=== PATIENT | female | born 1985 | race Caucasian/White ===

== ENCOUNTER 2017-06-22 14:53 | Emergency (ER) | payer MEDICAID ==
[~2017-06-22] VITALS: Ht 160 cm; Wt 68.2 kg
[~2017-06-22 14:53] MED LIST: ALBU8.5H8 INH; GUAI-103 PO; TRAMADOL PO
[2017-06-22 14:56] VITALS: BP 114/79
[2017-06-22] MEDS ORDERED: HYDROcodone/APAP 5/325 TABLET ONE (15:58)
[2017-06-22] MEDS ORDERED: HYDROcodone/APAP 5/325 TABLET PO ONE (16:00)
== END 2017-06-22 17:08 | disposition home or self-care (01) ==
LOC: ED 16:45
DX: S86.912A Strain of unspecified muscle(s) and tendon(s) at lower leg level, left leg, initial encounter (principal); Z87.891 Personal history of nicotine dependence; X58.XXXA Exposure to other specified factors, initial encounter; Y93.89 Activity, other specified; Y92.89 Other specified places as the place of occurrence of the external cause; Y99.8 Other external cause status
CPT/HCPCS: 99284

== ENCOUNTER 2017-10-09 15:29 | Emergency (ER) | payer MEDICAID, OTHER ==
[~2017-10-09] VITALS: Ht 160 cm; Wt 66.8 kg
[2017-10-09 16:18] LABS: HEMATOCRIT 45.6 % (34.6-47.8); HEMOGLOBIN 15.3 g/dL (11.7-16.4); WHITE BLOOD COUNT 19.6 x10^3/uL (3.4-10)
[2017-10-09 16:29] LABS: ASPARTATE AMINO TRANSFERASE 14 U/L (15-37); BLOOD UREA NITROGEN 7 mg/dL (7-18)
[2017-10-09] MEDS ORDERED: MORPHINE SULFATE 4 MG/ML, 1ML ONE ×2 (16:40→17:35)
[2017-10-09 16:41] LABS: PATH.CAST-FLAG NOT PRESENT; SPERM-FLAG NOT PRESENT; SRC-FLAG NOT PRESENT; XTAL-FLAG NOT PRESENT; YLC-FLAG NOT PRESENT
[2017-10-09] MEDS ORDERED: ONDANSETRON 2MG/ML, 2ML ONE (16:41)
[2017-10-09] MEDS ORDERED: KETOROLAC 30 MG/1 ML ONE (16:41)
[2017-10-09] MEDS: MORPHINE SULFATE 4 MG/ML, 1ML IVPush PRN ×2 (16:43→17:36)
[2017-10-09] MEDS ORDERED: SODIUM CHLORIDE FLUSH 10ML SYR IVF ONE (17:00)
[2017-10-09] MEDS ORDERED: SODIUM CHLORIDE 0.9% 1,000ML IVBOLUS ONE (17:00)
[2017-10-09] MEDS ORDERED: ONDANSETRON 2MG/ML, 2ML IVPush ONE (17:00)
[2017-10-09] MEDS ORDERED: KETOROLAC 30 MG/1 ML IVPush ONE (17:00)
[2017-10-09 18:26] VITALS: BP 124/70
[2017-10-09] MEDS ORDERED: CEFTRIAXONE PMX 1GM/50ML 50 ML IV ONE (18:30)
[2017-10-09] MEDS ORDERED: CEFTRIAXONE PMX 1GM/50ML 50 ML ONE (18:31)
== END 2017-10-09 18:40 | disposition home or self-care (01) ==
LOC: ED 16:11 → UNDOADMIN 17:58 → EDIP 17:58
DX: N10 Acute pyelonephritis (principal); D72.829 Elevated white blood cell count, unspecified
CPT/HCPCS: 36415; 74176; 80053; 81001; 84703; 85025; 87077; 87086; 87186; 96361; 96374; 96375; 99285; J0696; J1885; J2405; J7030; 96376

== ENCOUNTER 2019-12-14 05:22 | Emergency (ER) | payer BC ==
[~2019-12-14] VITALS: Ht 157.5 cm; Wt 74.9 kg
[2019-12-14] MEDS ORDERED: SODIUM CHLORIDE 0.9% 1,000ML IVBOLUS ONE (06:00)
[2019-12-14] MEDS ORDERED: SODIUM CHLORIDE FLUSH 10ML SYR IVF ONE (06:00)
[2019-12-14] MEDS ORDERED: ONDANSETRON 2MG/ML, 2ML IVPush ONE (06:00)
[2019-12-14] MEDS ORDERED: ONDANSETRON 2MG/ML, 2ML ONE (06:06)
[2019-12-14] MEDS ORDERED: MORPHINE SULFATE 4 MG/ML, 1ML ONE ×2 (06:06→07:19)
[2019-12-14] MEDS: MORPHINE SULFATE 4 MG/ML, 1ML IVPush PRN ×3 (06:07→07:22)
--- NOTE | 2019-12-14 06:07 | NUR ---
PT IN GOWN IN [facility]. PT ATTACHED TO VS MONITORS. VSS AT THIS TIME. IV ACCESS ESTABLISHED. PT EDUCATED ON ER PROCESS AND POC AND VERBALIZES UNDERSTANDING. CALL LIGHT IS WITHIN REACH AT THIS TIME
--- NOTE | 2019-12-14 06:08 | NUR ---
LAB AT PT BS AT THIS TIME
--- NOTE | 2019-12-14 06:18 | NUR ---
PT RESTING COMFORTABLY IN [facility] AT THIS TIME WITH CALL LIGHT WITHIN REACH.
[2019-12-14 06:23] LABS: BASOPHILS # (AUTO) 0.03 x10^3/uL (0-0.1); BASOPHILS % (AUTO) 0 % (0-1); EOSINOPHILS # (AUTO) 0.07 x10^3/uL (0-0.4); EOSINOPHILS % (AUTO) 1 % (1-7); LYMPHOCYTES # (AUTO) 1.45 x10^3/uL (1-3.4); LYMPHOCYTES % (AUTO) 12 % (22-44); MD NO; MEAN CORPUSCULAR HEMOGLOBIN 30.9 pg (27.0-34.8); MEAN CORPUSCULAR HGB CONC 33.7 g/dL (32.4-35.8); MEAN CORPUSCULAR VOLUME 91.9 fL (80-100); MEAN PLATELET VOLUME 8.1 fL (7.4-10.4); MONOCYTES # (AUTO) 0.22 x10^3/uL (0.2-0.8); MONOCYTES % (AUTO) 2 % (2-9); NEUTROPHILS # (AUTO) 9.98 x10^3/uL (1.8-6.8); NEUTROPHILS % (AUTO) 85 % (42-75); PLATELET COUNT 277 x10^3/uL (130-400); RED BLOOD COUNT 4.45 x10^6/uL (3.82-5.3); RED CELL DISTRIBUTION WIDTH 12.8 % (9.6-15.2)
--- NOTE | 2019-12-14 06:25 | NUR ---
PT TO US VIA [facility] AT THIS TIME.
[2019-12-14 06:30] LABS: ALANINE AMINOTRANSFERASE 45 U/L (12-78); ALBUMIN 3.7 g/dL (3.4-5.0); ANION GAP 6 mmol/L (5-15); CHLORIDE 111 mmol/L (98-107); CREATININE 0.72 mg/dL (0.55-1.02)
[2019-12-14 06:34] LABS: ALKALINE PHOSPHATASE 59 U/L (45-117); BILIRUBIN,TOTAL 0.3 mg/dL (0.2-1.0); TOTAL PROTEIN 7.4 g/dL (6.4-8.2)
--- NOTE | 2019-12-14 06:56 | NUR ---
report of pt to issa mireles. all questions answered.
--- NOTE | 2019-12-14 07:00 | NUR ---
REPORT RECEIVED FROM JUDI COOK.
--- NOTE | 2019-12-14 07:02 | NUR ---
PT BACK TO ROOM FROM US AT THIS TIME.
[2019-12-14 07:09] LABS: MICROSCOPIC AUTO
[2019-12-14 07:14] LABS: CULTURE INDICATED? YES
--- NOTE | 2019-12-14 07:16 | NUR ---
urine collected and ua sent.
--- NOTE | 2019-12-14 07:18 | NUR ---
pt amb to br with steady gait.
--- NOTE | 2019-12-14 07:24 | NUR ---
pt's pain level is 8/10 at this time and pt requesting pain med. pt medicated per emar. pt tolerated well.
[2019-12-14 08:13] VITALS: BP 115/73
--- NOTE | 2019-12-14 08:39 | NUR ---
Patient given discharge instructions and they have confirmed that they understand the instructions. Patient ambulatory with steady gait.
== END 2019-12-14 08:40 | disposition home or self-care (01) ==
LOC: ED 07:45
DX: O00.201 Right ovarian pregnancy without intrauterine pregnancy (principal); O21.9 Vomiting of pregnancy, unspecified
CPT/HCPCS: 36415; 76801; 80053; 81001; 84702; 85025; 86901; 87086; 96361; 96374; 96375; 96376; 99284; J2270; J2405; J7030